=== PATIENT | female | born 1995 | race American Indian/Alaskan Native ===

== ENCOUNTER 2016-04-04 16:26 | Emergency (ER) | payer MEDICAID ==
[2016-04-04] MEDS ORDERED: ATIVAN IM ONE (16:35)
[2016-04-04 16:48] VITALS: BP 127/77
--- NOTE | 2016-04-04 16:55 | Emergency Department Report ---
ED Seizure HPI - General Chief Complaint: Seizure Stated Complaint: SEIZURE LIKE ACTIVITY Time Seen by Provider: 04/04/16 16:34 Source: patient Mode of arrival: Stretcher Limitations: No Limitations - History of Present Illness Initial Comments: Patient is a 21-year-old female with history of seizures? Presenting today because of seizure-like episode. Patient was at work and had a seizure episode when EMS arrived patient was not having a seizure. Patient started having right upper extremity and right lower extremity rhythmic shaking on route to the ER. Currently she is not answering questions patent is having this rhythmic shaking. - Related Data Home Medications Medication Instructions Recorded Confirmed Last Taken No Known Home Medications [No 03/01/16 04/04/16 Unknown Reported Home Medications] Allergies Allergy/AdvReac Type Severity Reaction Status Date / Time No Known Allergies Allergy Verified 09/02/15 15:25 ED Review of Systems ROS: Stated complaint: SEIZURE LIKE ACTIVITY Other details as noted in HPI Comment: Unobtainable due to pts medical conditions Respiratory: denies: shortness of breath ED Past Medical Hx - Past Medical History Hx Hypertension: No Hx Congestive Heart Failure: No Hx Diabetes: No Hx Deep Vein Thrombosis: No Hx Renal Disease: No Hx Sickle Cell Disease: No Hx Seizures: Yes Hx Asthma: No Hx COPD: No Hx HIV: No - Social History Smoking Status: Never Smoker - Medications Home Medications: Home Medications Medication Instructions Recorded Confirmed Last Taken Type No Known Home Medications [No 03/01/16 04/04/16 Unknown History Reported Home Medications] ED Physical Exam - General Limitations: No Limitations - Head Head exam: Present: atraumatic - Eye Pupils: Present: other (eyes roving around, no gaze deviation) - Respiratory Respiratory exam: Present: normal lung sounds bilaterally. Absent: respiratory distress - Cardiovascular Cardiovascular Exam: Present: regular rate, normal rhythm - GI/Abdominal GI/Abdominal exam: Present: soft. Absent: distended, tenderness - Neurological Exam Neurological exam: Present: other (patient place and some resistance when trying to open her eyes, she has right upper extremity and right lower extremity rhythmic movement, when distracting her verbally she starts moving her head and making facial expressions) - Skin Skin exam: Present: intact ED Course Vital Signs 04/04/16 04/04/16 04/04/16 16:44 17:42 18:22 Temperature 98 F Pulse Rate 87 Respiratory 18 18 18 Rate Blood Pressure 127/77 O2 Sat by Pulse 100 100 Oximetry - Reevaluation(s) Reevaluation #1: 04/04/16 17:35 Patient's family member arrived and the patient stopped having seizure-like activity Reevaluation #2: 04/04/16 18:40 Patient's lactic acid, which was drawn while the patient was having a seizure- like episode, came back normal. This suggests that the patient did not have an epileptic seizure. Labs otherwise are also unremarkable. Patient is complaining of some right-sided pain arm and leg, Toradol ordered for the pain. Reevaluation #3: 04/04/16 19:58 Patient ambulated to the bathroom unassisted. Has her brother here. We'll discharge home with neurology follow-up. ED Medical Decision Making - Lab Data Result diagrams: 04/04/16 18:41 04/04/16 17:00 - Medical Decision Making Not clearly a seizure, may be a pseudoseizure. The patient's vitals here are normal, not tachycardic or hypertensive. Given that the patient resists part of the exam is more suggestive of a pseudoseizure. We'll give Ativan IM and draw labs including a lactic acid. Critical care attestation.: If time is entered above; I have spent that time in minutes in the direct care of this critically ill patient, excluding procedure time. ED Disposition Clinical Impression: Convulsion, non-epileptic Qualifiers: Convulsion type: unspecified Qualified Code(s): R56.9 - Unspecified convulsions Disposition: DISCHARGED TO HOME OR SELFCARE Is pt being admited?: No Does the pt Need Aspirin: No Condition: Stable Instructions: Non-epileptic Seizures (ED), Women and Epilepsy (ED) Additional Instructions: Please follow up with a neurologist within the next 1-[address] for the next 6 months, you have to be evaluated by neurologist before your allowed to drive. Return to the emergency room if he have another episode or he develop any new symptoms especially severe headache, numbness, weakness, difficulty walking, difficulty talking. Referrals: PRIMARY CARE, [Primary Care Provider] - 3-5 Days BRIGIDA JUAREZ MD [Staff Physician] - 3-5 Days
[2016-04-04 17:30] LABS: Blood Urea Nitrogen 12 mg/dL (7-17); Calcium 9.1 mg/dL (8.4-10.2); Carbon Dioxide 22 mmol/L (22-30); Chloride 101.1 mmol/L (98-107); Glucose 86 mg/dL (65-100); Magnesium 1.9 mg/dL (1.7-2.3); Phosphorous 2.9 mg/dL (2.5-4.5); Potassium 3.6 mmol/L (3.6-5.0); Sodium 137 mmol/L (137-145)
[2016-04-04 17:31] LABS: Anion Gap 18 mmol/L
[2016-04-04] MEDS ORDERED: KEPPRA 1,000 MG/NS 0.75% 100ML 100 ML IV ONE (17:33)
[2016-04-04] MEDS ORDERED: ATIVAN IV ONE (17:34)
[2016-04-04] MEDS ORDERED: TORADOL IM ONE (18:01)
[2016-04-04 18:49] LABS: Hematocrit 35.7 % (30.3-42.9); Hemoglobin 11.6 gm/dl (10.1-14.3); Mean Corpuscular HGB Conc 33 % (30-34); Mean Corpuscular Hemoglobin 26 pg (28-32); Mean Corpuscular Volume 81 fl (79-97); Platelet Count 291 K/mm3 (140-440); Red Blood Count 4.43 M/mm3 (3.65-5.03); Red Cell Distribution Width 15.3 % (13.2-15.2); White Blood Count 7.8 K/mm3 (4.5-11.0)
[2016-04-04 19:55] LABS: Bilirubin,Urine NEG (Negative); Blood,Urine NEG (Negative); Ketones,Urine 20 mg/dL (Negative); Leukocyte Esterase,Urine TR (Negative); Mucus,Urine 3+ /HPF; Nitrite,Urine NEG (Negative); Protein,Urine <15 mg/dL mg/dL (Negative); Urobilinogen,Urine < 2.0 mg/dL (<2.0)
== END 2016-04-04 20:18 | disposition home or self-care (01) ==
LOC: ED 16:26
DX: R56.9 Unspecified convulsions (principal)
CPT/HCPCS: 36415; 80048; 81001; 81025; 82140; 83735; 84100; 84703; 85027; 96372; 99283; J1885; J2060

== ENCOUNTER 2016-07-21 00:18 | Emergency (ER) | payer MEDICAID ==
[2016-07-21 00:57] VITALS: BP 118/65
[2016-07-21 02:20] LABS: Bilirubin,Urine NEG (Negative); Blood,Urine NEG (Negative); Ketones,Urine NEG (Negative); Leukocyte Esterase,Urine NEG (Negative); Mucus,Urine 2+ /HPF; Nitrite,Urine NEG (Negative); Urobilinogen,Urine < 2.0 mg/dL (<2.0)
--- NOTE | 2016-07-22 00:36 | ED Elopement Review ---
ED Pt Elopement review - Results review Lab results: Laboratory Tests 07/21/16 01:22 Urine Color Yellow Urine Turbidity Clear Urine pH 8.0 H Ur Specific [place] 1.028 Urine Protein 30 mg/dl Urine Glucose (UA) Neg Urine Ketones Neg Urine Blood Neg Urine Nitrite Neg Urine Bilirubin Neg Urine Urobilinogen < 2.0 Ur Leukocyte Esterase Neg Urine WBC (Auto) 4.0 Urine RBC (Auto) 3.0 U Epithel Cells (Auto) 11.0 Amorphous Crystals Few Urine Mucus 2+ Urine HCG, Qual Negative - Call Back decision Pt Call Back Decision: Pt to F/U with PMD (patient should follow up with primary physician for proteinuria and further evaluation)
== END 2016-07-21 03:43 | disposition left against medical advice (07) ==
LOC: ED 00:18
DX: R51 Headache (principal); R07.89 Other chest pain; Z53.21 Procedure and treatment not carried out due to patient leaving prior to being seen by health care provider
CPT/HCPCS: 81001; 81025; 93005